=== PATIENT | female | born 1980 | race Caucasian/White ===

== ENCOUNTER → 2021-10-06 09:49 | Outpatient (BNVA) | payer OTHER, SELFPAY | PROVIDERS: Family Provider Nurse Practitioner Family; PCP Nurse Practitioner; Visit Provider Nurse Practitioner | DX: E66.9 Obesity, unspecified (principal); Z68.37 Body mass index [BMI] 37.0-37.9, adult | CPT/HCPCS: 80053; 85025 ==

== ENCOUNTER 2022-03-17 20:12 | Emergency (ER) | payer OTHER, SELFPAY ==
[2022-03-17 20:48] VITALS: BP 102/69; PULSE 89; RESP 18; TEMP 36.6; O2SAT 96; BMI 29.0
--- NOTE | 2022-03-17 21:00 | CTR_ITS ---
PROCEDURE INFORMATION: Exam: CT Abdomen And Pelvis With Contrast Exam date and time: 03/17/2022 9:30 PM Age: 41 years old Clinical indication: Abdominal pain; Localized; Right upper quadrant (ruq); Prior surgery; Surgery type: Csection. Tubal. ; Patient HX: Ruq pain with nausea. ; Additional info: Abd pain TECHNIQUE: Imaging protocol: Computed tomography of the abdomen and pelvis with contrast. Radiation optimization: All CT scans at this facility use at least one of these dose optimization techniques: automated exposure control; mA and/or kV adjustment per patient size (includes targeted exams where dose is matched to clinical indication); or iterative reconstruction. Contrast material: OMNI 350; Contrast volume: 95 ml; Contrast route: INTRAVENOUS (IV); COMPARISON: No relevant prior studies available. RADIATION DOSE METRICS: Total DLP (mGy-cm): 1664.43 FINDINGS: Liver: Hypodensity in the right liver lobe is too small to characterize but is most likely a cyst. No follow-up imaging is recommended. Mild periportal edema. Gallbladder and bile ducts: Normal. No calcified stones. No ductal dilation. Pancreas: Normal. No ductal dilation. Spleen: Normal. No splenomegaly. Adrenal glands: Normal. No mass. Kidneys and ureters: Normal. No hydronephrosis. Stomach and bowel: Postsurgical changes of the stomach with sutures. The small bowel, and colon are unremarkable. Appendix: No evidence of appendicitis. Intraperitoneal space: Unremarkable. No free air. No significant fluid collection. Arteries: Unremarkable. No abdominal aortic aneurysm. Lymph nodes: Unremarkable. No enlarged lymph nodes. Urinary bladder: Unremarkable as visualized. Reproductive: 2.0 cm dominant follicle in the left ovary. The uterus and right ovary are unremarkable. Bones/joints: Unremarkable. No acute fracture. Soft tissues: Unremarkable. CT/CT abdomen pelvis w con* [id number] IMPRESSION: 1. Mild periportal edema. This finding is nonspecific but can be seen with hepatitis and cholangitis. 2. Otherwise no acute abnormality identified.
[2022-03-17 21:18] VITALS: RESP 16
[2022-03-17] MEDS: HYDROmorphone 1 mg/mL INJ 1 mL IVP (21:18)
[2022-03-17] MEDS: ondansetron 2 mg/ML SDV 2 mL 4 MG IVP (21:18)
[2022-03-17 21:22] VITALS: BP 126/80; PULSE 77; O2SAT 98
[2022-03-17] MEDS: iohexol 350 mg/mL 100 mL Btl IV (21:28)
[2022-03-17 21:29] LABS: Basophils % 0.2 %; Eosinophils % 0.1 %; Hematocrit 36.3 % (37.0-47.0); Hemoglobin 11.9 g/dL (11.5-15.3); Lymphocytes # 1.3 10^3/uL (0.8-4.8); Lymphocytes % 9.2 %; Mean Corpuscular HGB Conc 32.8 g/dL (30.0-36.0); Mean Corpuscular Hemoglobin 28.1 pg (28.0-34.0); Mean Corpuscular Volume 85.6 fl (81-99); Mean Platelet Volume 9.5 fL (7.4-10.4); Monocytes # 0.7 10^3/uL (0.2-0.9); Monocytes % 5.1 %; Neutrophils # 11.55 10^3/uL (1.8-7.7); Neutrophils % 85.1 %; Nucleated Red Blood Cells % 0 %; Platelet Count 285 10^3/cmm (130-400); Red Blood Count 4.24 10^6/uL (4.1-5.3); Red Cell Distribution Width 12.4 % (12.1-15.1); White Blood Count 13.6 10^3/uL (4.0-10.0)
--- NOTE | 2022-03-17 21:29 | ED_ITS ---
HPI - Abdominal Pain General: Chief Complaint: Abdominal Pain Stated Complaint: Gall Bladder Pain Time Seen by Provider: 03/17/22 20:58 Source: patient Mode of arrival: ambulatory Limitations: no limitations History of Present Illness: 41-year-old female who had gastric bypass surgery back in September she has had some issues with her gallbladder since then she had 3 separate incidences of pain states that tonight she been having severe right upper quadrant abdominal pain with vomiting. States that she supposed to see her gastric bypass surgeon in [place] for possible cholecystectomy denies any fever denies any worsening proving factors states her pain currently is a 10 out of 10. Associated Symptoms: Reports vomiting; Denies chills, dysuria and fever(s) Review of Systems Const: Denies: fever(s), chills, body aches or change in appetite Eyes: Denies: blurry vision or eye discomfort ENMT: Denies: throat pain or dental pain Card: Denies: chest pain Resp: Denies: dyspnea GI: Reports: abdominal pain and vomiting : Denies: dysuria Musc: Denies: neck pain or back pain Skin/Breast: Denies: rash Neuro: Denies: headache(s) Psych: Denies: depression Aba/Lymph: Denies: easy bruising All/Imm: Denies: urticaria PFSH ED PFSH: Medical History Gastric reflux Insulin resistance Microscopic hematuria Surgical History H/O abdominoplasty H/O: Hx of tubal ligation Family History Mother Stroke Father Diabetes Social History Second hand smoke exposure: No Smoking risk assessment/counseling performed?: No Alcohol intake: never Desire information about alcohol rehabilitation?: No Counseling given: No Desire information about substance/drug rehabilitation?: No Counseling given: No Adopted: No Caregiver/support person: No Lives independently: No Household members: spouse Housing: House Marital status: service: No Current occupational status: employed 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 History of recent travel: No Current gender identity: Female Physical Exam Const: COMMON NORMALS: no acute distress, patient oriented x3 and healthy appearing HENMT: COMMON NORMALS: normocephalic and atraumatic HEAD & SCALP: normocephalic and atraumatic Eye: COMMON NORMALS: Equal, round and reactive pupils present and EOMs intact bilaterally PUPIL: Yes Equal, round and reactive pupils present Neck/C-Spine: COMMON NORMALS: full ROM and supple Chest: COMMONS NORMALS: normal inspection of the chest and normal palpation of entire chest wall Resp: COMMON NORMALS: normal respiratory effort, No retractions, No use of accessory muscles and clear to auscultation bilaterally AUSCULTATION: clear to auscultation bilaterally Cardio: COMMON NORMALS: regular rate, regular rhythm and No murmurs present (Cardio) RATE: regular rate RHYTHM: regular rhythm GI: COMMON NORMALS: Normal to inspection, nondistended, normoactive bowel sounds present, Soft to palpation and no masses PALPATION: Yes Soft to palpation and Yes Tenderness to palpation present (GI) Details: RUQ Extremity: COMMON NORMALS: normal to inspection and full ROM Neuro: COMMON NORMALS: patient oriented x3, moves all extremities and no focal motor deficits Psych: COMMON NORMALS: mental status grossly normal, Normal thought process present and cooperative THOUGHT PROCESS: Normal thought process present Skin: COMMON NORMALS: no rashes or lesions noted and no wounds GENERAL SKIN EXAM: no rashes or lesions noted Course Vital Signs: Vital signs: Vital Signs Temperature 97.8 F 03/17/22 20:48 Pulse Rate 88 03/17/22 23:06 Respiratory Rate 16 03/17/22 23:06 Blood Pressure 109/64 03/18/22 00:03 Pulse Oximetry 100 03/18/22 00:03 MDM - Abdominal Pain Medical Decision Making Patient presents with abdominal pain she feels much improved here after IV pain meds and nausea medicine patient has no signs of cholecystitis no signs of a sending cholangitis liver enzymes lipase are normal I spoke to patient's surgeon Dr. Adames in [place] reviewed findings with him he states that he would like to see her in his office on Monday informed patient of this she is to follow-up and return if worsening she understands agrees to plan Lab Data : 03/17/22 21:05 03/17/22 21:05 Labs/Radiology: Radiology Impressions Abdomen/Pelvis CT 03/17/22 21:00 IMPRESSION: 1. Mild periportal edema. This finding is nonspecific but can be seen with hepatitis and cholangitis. 2. Otherwise no acute abnormality identified. Laboratory Results WBC 13.6 10^3/uL (4.0-10.0) H 03/17/22 21:05 RBC 4.24 10^6/uL (4.1-5.3) 03/17/22 21:05 Hgb 11.9 g/dL (11.5-15.3) 03/17/22 21:05 Hct 36.3 % (37.0-47.0) L 03/17/22 21:05 MCV 85.6 fl (81-99) 03/17/22 21: MCH 28.1 pg (28.0-34.0) 03/17/22: MCHC 32.8 g/dL (30.0-36.0) 03/17/22:05 RDW 12.4 % (12.1-15.1) 03/17/22:05 Plt Count 285 10^3/cmm (130-400) 03/17/22 21:05 MPV 9.5 fL (7.4-10.4) 03/17/22 21:05 Neut % (Auto) 85.1 % 03/17/22: Lymph % (Auto) 9.2 % 03/17/22:05 [place] % (Auto) 5.1 % 03/17/22:05 Eos % (Auto) 0.1 % 03/17/22: Baso % (Auto) 0.2 % 03/17/22:05 Neut # (Auto) 11.55 10^3/uL (1.8-7.7) H 03/17/22 21:05 Lymph # (Auto) 1.3 10^3/uL (0.8-4.8) 03/17/22:05 [place] # (Auto) 0.7 10^3/uL (0.2-0.9) 03/17/22 21:05 Eos # (Auto) 0.0 10^3/uL (0.0-0.8) 03/17/22 21:05 Baso # (Auto) 0.0 10^3/uL (0.0-0.1) 04/21/22 21:05 Nucleated RBC % (auto) 0 % 03/17/22 21:05 Nucleated RBCs # 0.0 /100WBC 03/17/22 21:05 Sodium 139 mmol/L (136-145) 03/17/22 21:05 Potassium 4.2 mmol/L (3.5-5.1) 03/17/22 21:05 Chloride 102 mmol/L (98-107) 03/17/22 21:05 Carbon Dioxide 25 mmol/L (22-29) 03/17/22 21:05 Anion Gap 16.2 (5-19) 03/17/22 21:05 BUN 10 mg/dL (6-20) 03/17/22 21:05 Creatinine 0.6 mg/dL (0.5-0.9) 03/17/22 21:05 GFR Calculation 109.1 mL/min (90-130) 03/17/22 21:05 Glucose 159 mg/dL (65-115) H 03/17/22 21:05 Calculated Osmolality 290 mOsm/kg (285-295) 03/17/22 21:05 Calcium 9.1 mg/dL (8.5-10.5) 03/17/22 21:05 Total Bilirubin 0.7 mg/dL (0.15-1.2) 03/17/22 21:05 AST 66 U/L (0-32) H 03/17/22 21:05 ALT 42 U/L (0-33) H 03/17/22 21:05 Alkaline Phosphatase 92 IU/L (35-105) 03/17/22 21:05 Total Protein 6.6 g/dL (6.6-8.7) 03/17/22 21:05 Albumin 4.6 g/dL (3.5-5.2) 03/17/22 21:05 Globulin 2.0 g/dL (1.3-4.6) 03/17/22 21:05 Lipase 31 U/L (13-60) 03/17/22 21:05 HCG, Qual Negative (Negative) 03/17/22 21:40 Urine Color Yellow (Yellow) 03/17/22 22:10 Urine Appearance Clear (CLEAR) 03/17/22 22:10 Urine pH 6.5 (5-7) 03/17/22 22:10 Ur Specific [place] 1.010 (1.005-1.030) 03/17/22 22:10 Urine Protein Trace (Negative) 03/17/22 22:10 Urine Glucose (UA) Norm (Normal) 03/17/22 22:10 Urine Ketones 2+ (Negative) H 03/17/22 22:10 Urine Blood Trace (Negative) H 03/17/22 22:10 Urine Nitrate Negative (Negative) 03/17/22 22:10 Urine Bilirubin 1+ (Negative) H 03/17/22 22:10 Urine Urobilinogen 4 mg/dL (Negative) H 03/17/22 22:10 Ur Leukocyte Esterase Negative (Negative) 03/17/22 22:10 Urine RBC 0-4 /hpf (0-2) H 03/17/22 22:10 Urine WBC 0-4 /hpf (0-5) H 03/17/22 22:10 Ur Squamous Epith Cells 0-4 /hpf (0-5) H 03/17/22 22:10 Amorphous Sediment Not Reportable 03/17/22 22:10 Urine Bacteria Trace /hpf (NONE) 03/17/22 22:10 Urine Mucus Trace /hpf 03/17/22 22:10 Discharge Plan Discharge Patient Disposition: Home Clinical Impression: Abdominal pain, Vomiting Condition: Stable Prescriptions: New ondansetron 4 mg tablet,disintegrating 4 mg PO Q6H PRN (Reason: nausea and vomiting) Qty: 14 0RF Lortab Elixir 10-300 mg/15 mL solution 15 ml PO Q8H PRN (Reason: pain) Qty: 300 0RF No Action scopolamine base 1 mg over 3 days patch 3 day 1 patch transdermal Q3D PRN (Reason: nausea and vomiting) Qty: 4 0RF hydrochlorothiazide 25 mg tablet 25 mg PO DAILY PRN (Reason: edema) Qty: 90 1RF (DME) pen needle, diabetic [BD Ultra-Fine Short Pen Needle] 31 gauge x 5/16 needle See Rx Instructions .Route Qty: 100 6RF Rx Instructions: As directed esomeprazole magnesium [Nexium] 20 mg capsule,delayed release(DR/EC) 20 mg PO DAILY Qty: 90 1RF Discharge Orders: Discharge ED (Routine); Ordered 03/18/22 Ordered By: Soraida Whitfield Referrals: Gil Thornton, [employer]ESS[employer] [Primary Care Provider] - Discharge Diet: Advance as tolerated Discharge Activity: Resume usual activity Patient Instructions: Abdominal Pain (ED) Coding Level of Care Code ED Obiee Obia Solution Architect for Chg Fwd Exam Comprehensive
[2022-03-17 21:51] LABS: Alanine Aminotransferase 42 U/L (0-33); Albumin Level 4.6 g/dL (3.5-5.2); Alkaline Phosphatase 92 IU/L (35-105); Anion Gap 16.2 (5-19); Aspartate Amino Transferase 66 U/L (0-32); Blood Urea Nitrogen 10 mg/dL (6-20); Calcium 9.1 mg/dL (8.5-10.5); Carbon Dioxide 25 mmol/L (22-29); Chloride 102 mmol/L (98-107); Glomerular Filtration Rate 109.1 mL/min (90-130); Glucose 159 mg/dL (65-115); Lipase 31 U/L (13-60); Osmolality Calculated 290 mOsm/kg (285-295); Potassium 4.2 mmol/L (3.5-5.1); Sodium 139 mmol/L (136-145); Total Bilirubin 0.7 mg/dL (0.15-1.2); Total Protein 6.6 g/dL (6.6-8.7)
[2022-03-17 22:11] LABS: HCG, Serum Qual Negative (Negative)
[2022-03-17 22:30] LABS: Bilirubin Urine 1+ (Negative); Blood Urine Trace (Negative); Glucose Urine UA Norm (Normal); Ketones Urine 2+ (Negative); Nitrate Urine Negative (Negative); Protein Urine Trace (Negative); Urine Appearance Clear (CLEAR); Urine Color Yellow (Yellow); pH Urine 6.5 (5-7)
[2022-03-17 22:31] LABS: Leukocyte Esterase Urine Negative (Negative); Urobilinogen Urine 4 mg/dL (Negative)
[2022-03-17 22:40] LABS: Add Urine Microscopic? YES; Bacteria Urine TRACE /hpf; Mucus Urine TRACE /hpf; RBC Urine 0-4 /hpf (0-2); Squamous Epithelial Cell Urine 0-4 /hpf (0-5); WBC Urine 0-4 /hpf (0-5)
[2022-03-17 22:41] LABS: Add Urine Culture? No
[2022-03-17] MEDS: sodium chloride 0.9% 1,000 ML 999 ML IV (22:48)
[2022-03-17 23:06] VITALS: BP 97/60; PULSE 88; RESP 16; O2SAT 99
--- NOTE | 2022-03-17 23:13 | USR_ITS ---
PROCEDURE INFORMATION: Exam: US Abdomen, Limited; Right Upper Quadrant Exam date and time: 03/17/2022 11:48 PM Age: 41 years old Clinical indication: Abdominal pain; Localized; Right upper quadrant (ruq); Additional info: Abd pain TECHNIQUE: Imaging protocol: US abdomen. Real time ultrasound with image documentation. Limited exam focused on the right upper quadrant. COMPARISON: CT abdomen pelvis w con* [id number] 03/17/2022 9:30 PM FINDINGS: Liver: The liver is of normal echogenicity measuring 16.3 cm in length. Gallbladder: Echogenic shadowing calculi within the dependent gallbladder. No wall thickening. Common bile duct: Normal. No stones. No dilation. Pancreas: Visualized pancreas is unremarkable. Right kidney: Normal. No mass. No hydronephrosis. Portal venous: The main portal vein is patent with hepatopetal flow. Intraperitoneal space: No ascites. US/US gall bladder [id number] IMPRESSION: 1. Cholelithiasis. No evidence for cholecystitis.
[2022-03-18 00:03] VITALS: BP 109/64; O2SAT 100
[2022-03-18] MEDS: HYDROcodone-acetaminophen 5-325 mg Tablet 1 TAB PO (00:14)
[2022-03-18] MEDS: ondansetron 2 mg/ML SDV 2 mL 4 MG IVP (00:14)
[2022-03-18 00:19] VITALS: BP 109/64; PULSE 59; RESP 12; O2SAT 100
== END 2022-03-18 00:20 | disposition home or self-care (01) ==
PROVIDERS: Nurse Practitioner Family; Emergency Provider Emergency Medicine; PCP Nurse Practitioner
DX: R10.9 Unspecified abdominal pain (principal); Z90.3 Acquired absence of stomach [part of]; R11.10 Vomiting, unspecified
CPT/HCPCS: 74177; 76705; 80053; 81001; 83690; 84703; 85025; 96361; 96374; 96375; 96376; 99284; J1170; J2405; J7030; Q9967

== ENCOUNTER → 2022-08-31 11:07 | Outpatient (BNVA) | payer OTHER, SELFPAY | PROVIDERS: PCP Nurse Practitioner; Visit Provider Nurse Practitioner | DX: M53.3 Sacrococcygeal disorders, not elsewhere classified (principal) | CPT/HCPCS: 72220 ==

== ENCOUNTER → 2022-12-08 09:30 | Outpatient (BNVA) | payer OTHER, SELFPAY | PROVIDERS: PCP Nurse Practitioner; Visit Provider Nurse Practitioner | DX: R05.9 Cough, unspecified (principal) | CPT/HCPCS: 71046; 81000; 85025; 87486; 87581; 87633 ==

== ENCOUNTER 2022-12-30 08:25 | Outpatient (CLI) | payer OTHER, SELFPAY ==
--- NOTE | 2022-12-30 08:30 | MM_ITS ---
WS: [id number] BILATERAL SCREENING DIGITAL TOMOSYNTHESIS MAMMOGRAM WITH CAD HISTORY: SCREENING COMPARISON: 10/04/2019 Bilateral CC and MLO views with tomosynthesis and synthetic mammography submitted. Computer aided det ection analyzed. Breast composition: The breasts are extremely dense, which lowers the sensitivity of mammography. No suspicious masses, microcalcifications or architectural distortion. Benign calcifications within each breast. MM/[place] [id number] IMPRESSION: BI-RADS: 2-Benign FOLLOW UP: 1 Year Follow-up
== END 2022-12-30 08:26 | disposition home or self-care (01) ==
LOC: RAD 08:26
PROVIDERS: PCP Nurse Practitioner; Visit Provider Nurse Practitioner
DX: Z12.31 Encounter for screening mammogram for malignant neoplasm of breast (principal)
CPT/HCPCS: 77063; 77067

== ENCOUNTER 2023-01-20 15:34 | Outpatient (CLI) | payer OTHER, SELFPAY ==
--- NOTE | 2023-01-20 16:00 | US_ITS ---
WS: [id number] TRANSABDOMINAL PELVIC AND TRANSVAGINAL PELVIC ULTRASOUND HISTORY: N92.0 - Excessive and frequent menstruation with regular ... COMPARISON: None available. Uterus: 9.8 cm x 6.3 cm x 5.5 cm. Uterus is top normal size to slightly enlarged and anteverted. On t ransvaginal imaging the uterus is slightly flexed. No fibroid or mass identified. Endometrium: 0.7 cm. Normal endometrium. There is small amount of fluid along the cervical canal. Right ovary: 3.2 cm x 1.9 cm x 1.7 cm. Normal size and vascularity. No mass identified. Left ovary: 2.8 cm x 2.7 cm x 2.2 cm. Normal size and vascularity. No mass identified. LEFT ovarian f ollicle maximum diameter 2.0 cm. Free fluid: No free fluid. US/US pelv w/transvag [id number] IMPRESSION: 1. Normal endometrium. No pelvic mass or fibroid. 2. No free fluid.
== END 2023-01-20 15:35 | disposition home or self-care (01) ==
PROVIDERS: PCP Nurse Practitioner; Visit Provider Nurse Practitioner
DX: N92.0 Excessive and frequent menstruation with regular cycle (principal)
CPT/HCPCS: 76830; 76856; 85025

== ENCOUNTER → 2023-04-05 08:45 | Outpatient (BNVA) | payer OTHER, SELFPAY | PROVIDERS: PCP Nurse Practitioner; Visit Provider Nurse Practitioner | DX: E66.3 Overweight (principal); E88.81 Metabolic syndrome and other insulin resistance; E55.9 Vitamin D deficiency, unspecified; Z98.890 Other specified postprocedural states | CPT/HCPCS: 80053; 82306; 82607; 83735; 84443; 85025 ==

== ENCOUNTER → 2024-03-14 10:53 | Outpatient (BNVA) | payer OTHER, SELFPAY | PROVIDERS: PCP Nurse Practitioner; Referring Provider Nurse Practitioner Family; Visit Provider Nurse Practitioner Women's Health | DX: Z12.4 Encounter for screening for malignant neoplasm of cervix (principal) | CPT/HCPCS: 87624 ==

== ENCOUNTER → 2024-03-28 10:24 | Outpatient (BNVA) | payer OTHER, SELFPAY | PROVIDERS: PCP Nurse Practitioner; Visit Provider Nurse Practitioner Women's Health | DX: N92.6 Irregular menstruation, unspecified (principal); N93.9 Abnormal uterine and vaginal bleeding, unspecified | CPT/HCPCS: 76830 ==

== ENCOUNTER → 2025-09-23 15:44 | Outpatient (BNVA) | payer OTHER, SELFPAY | PROVIDERS: PCP Nurse Practitioner; Visit Provider Nurse Practitioner Women's Health | DX: N93.9 Abnormal uterine and vaginal bleeding, unspecified (principal); Z96.0 Presence of urogenital implants | CPT/HCPCS: 76830; 76856 ==